=== PATIENT | male | born 1935 | race Caucasian/White ===

== ENCOUNTER 2017-06-24 07:18 | Inpatient (IN) | payer OTHER ==
[~2017-06-24] VITALS: Ht 170.2 cm; Wt 63.3 kg
[~2017-06-24 07:18] MED LIST: ADVIN25050; IBUP-103 PO
[2017-06-24] MEDS ORDERED: KETOROLAC TROMETHAMINE 30 MG/ML VIAL IV STA (07:37)
--- NOTE | 2017-06-24 07:45 | EMERGENCY ROOM VISIT NOTE ---
History Report prepared by Romeo: Rosamaria Arriaga Under the Supervision of: Dr. Benny Sinha M.D. First contact with patient: 07:33 Chief Complaint: KIDNEY STONE Stated Complaint: KIDNEY STONE History of Present Illness The patient is an 82 year old male who presents to the Emergency Room with complaints of persistent right flank pain that began last evening. He currently rates his discomfort as a 7/10 in severity. The patient states that he has a history of kidney stones. He states that since last evening he has experienced right flank pain that radiates into his right groin. The patient states that his last kidney stone was more than 10 years ago. He states that his pain today feels more intense than his previous kidney stones. The patient denies any pain with urination or lower extremity pain. Source of History: patient Onset: last evening Position: other (right flank) Symptom Intensity: 7/10 Timing: other (persistent) Associated Symptoms: No urinary symptoms Note: Associated Symptoms: right groin pain. Review of Systems All systems have been listed, reviewed, and are negative other than those previously mentioned. Please see Additional Medical History Sheet. Past Medical & Surgical Medical Problems: (1) Bronchitis (2) Kidney stones (3) Right ureteral calculus Family History Kidney disease Kidney stones Social History Smoking Status: Never Smoker Smokeless Tobacco Use: No Alcohol Use: none Marital Status: Housing Status: lives with significant other Occupation Status: retired Current/Historical Medications No Active Prescriptions or Reported Meds Allergies Coded Allergies: No Known Allergies (Verified , 01/15/13) Physical Exam Vital Signs Date Time Temp Pulse Resp B/P (MAP) Pulse Ox O2 Delivery O2 Flow Rate FiO2 06/24/17 10:52 67 16 132/63 95 Room Air 06/24/17 09:02 72 126/67 99 06/24/17 07:24 36.5 76 16 138/70 97 Physical Exam GENERAL: Patient awake, alert, oriented x 3. Patient follows commands. Patient does not appear toxic. Patient is adequately hydrated and well- nourished. SKIN: No erythema, pallor, cyanosis or rash HEENT: Normal head, pupils equal, reactive to light and accommodation. Neck: Without adenopathy, no neck vein distention. LUNGS: Clear to auscultation. No wheezes, no rales, no rhonchi. HEART: No murmurs. No gallops. No rubs ABDOMEN: No masses, no rebound, no hepatomegaly or splenomegaly. EXTREMITIES: No signs of trauma. No pedal or pretibial edema. No calf or thigh tenderness. NEUROLOGIC: Cranial nerves II-XII within normal limits. No gross motor sensory function deficits. Medical Decision & Procedures ER Provider Diagnostic Interpretation: CT results are interpretations by the radiologist and per my review. CT OF THE ABDOMEN AND PELVIS WITHOUT CONTRAST, STONE PROTOCOL CLINICAL HISTORY: Right flank pain. COMPARISON STUDY: CT of the abdomen and pelvis April 16, 2011. TECHNIQUE: Helical axial images of the abdomen and pelvis were obtained without IV or oral contrast according to renal stone protocol. A dose lowering technique was utilized adhering to the principles of ALARA. FINDINGS: Visualized portions of the lower lungs demonstrate a few left lower lobe pulmonary nodules which are unchanged since CT of April 16, 2011. These are benign given stability. There is mild bronchial wall thickening. Linear and groundglass opacities favor atelectasis. Trace pericardial effusion is present. Severe right hydroureteronephrosis is due to to a 1.1 x 0.7 cm right mid ureteral calculus located at the lower L5 level. No additional ureteral calculi are present. There are punctate bilateral renal calculi. There are left-sided parapelvic cysts. Evaluation the remainder of the abdomen and pelvis is suboptimal on this unenhanced exam. Unenhanced images of liver, spleen, adrenal glands and pancreas are unremarkable. There are calcified granulomas within the spleen. There are small gallstones within the gallbladder. There is no evidence for a bowel obstruction. No lymphadenopathy is present. A fat-containing right inguinal hernia is present. There are no suspicious osseous lesions. Mild dextroscoliosis of the lumbar spine is noted. IMPRESSION: 1. 1.1 x 0.7 cm mid right ureteral calculus that results in severe right hydroureteronephrosis. 2. Punctate bilateral renal calculi. 3. Cholelithiasis. Electronically signed by: Darien Nair M.D. 06/24/2017 8:08 AM Dictated Date/Time: 06/24/2017 7:57 AM Laboratory Results 06/24/17 07:43 06/24/17 07:43 Test 06/24/17 07:43 06/24/17 08:00 Red Blood Count 4.62 M/uL (4.7-6.1) Mean Corpuscular Volume 90.5 fL (80-100) Mean Corpuscular Hemoglobin 30.7 pg (25-34) Mean Corpuscular Hemoglobin Concent 34.0 g/dl (32-36) RDW Standard Deviation 46.3 fL (36.4-46.3) RDW Coefficient of Variation 14.0 % (11.5-14.5) Mean Platelet Volume 10.1 fL (7.4-10.4) Anion Gap 8.0 mmol/L (3-11) Est Creatinine Clear Calc Drug Dose 29.8 ml/min Estimated GFR () 42.3 Estimated GFR (Non- 36.5 BUN/Creatinine Ratio 14.8 (10-20) Calcium Level 9.2 mg/dl (8.5-10.1) Urine Color DK YELLOW Urine Appearance CLEAR (CLEAR) Urine pH 7.0 (4.5-7.5) Urine Specific [place] 1.024 (1.000-1.030) Urine Protein TRACE (NEG) Urine Glucose (UA) NEG (NEG) Urine Ketones 1+ (NEG) Urine Occult Blood NEG (NEG) Urine Nitrite NEG (NEG) Urine Bilirubin NEG (NEG) Urine Urobilinogen NEG (NEG) Urine Leukocyte Esterase SMALL (NEG) Urine WBC (Auto) 10-30 /hpf (0-5) Urine RBC (Auto) 5-10 /hpf (0-4) Urine Hyaline Casts (Auto) 1-5 /lpf (0-5) Urine Epithelial Cells (Auto) 20-30 /lpf (0-5) Urine Bacteria (Auto) NEG (NEG) Laboratory results as stated above per my review. Medications Administered Medications (Trade) Dose Ordered Sig/Mathieu Route Start Time Stop Time Status Last Admin Dose Admin Ketorolac Tromethamine (Toradol Inj) 30 mg NOW STAT IV 06/24/17 07:37 06/24/17 07:39 DC 06/24/17 07:47 30 MG Ciprofloxacin/ Dextrose (Cipro / D5W) 400 mg NOW STAT IV 06/24/17 10:09 06/24/17 10:11 DC 06/24/17 10:54 400 MG Sodium Chloride 1,000 ml @ 125 mls/hr Q8H IV 06/24/17 11:00 07/24/17 10:59 06/24/17 13:35 125 MLS/HR ED Course 0734: Past medical records reviewed. The patient was evaluated in room B9. A complete history and physical examination was performed. 0737: Ordered Toradol Inj 30 mg IV. 0948: I reevaluated the patient and he is feeling better, but although is still in some pain. He does not wish to have any further pain medications at this time. I discussed the exam findings with him and I discussed the treatment plan. Urology will be consulted. The patient is in agreement with the treatment plan for further evaluation. 1005: I discussed the patients case with MEDINA Johnson. She states that the patient should be placed on Cipro and have a urine culture ordered. She states that the patient should be evaluated in the hospital under medicine and they will consult. 1009: ordered Cipro/D5W 400 mg IV. 1032: I re-discussed the patients case with MEDINA Johnson. She states that the patient should actually be evaluated under [facility] Urology. 1034: I discussed the patients case with Dr. Day, [facility]. She states that the patient should be evaluated at by the hospitalist service and she will stent the patient later this afternoon. 1040: I discussed the patients case with MEDINA Dunn. He is going to evaluate the patient for further treatment. Medical Decision Nurses notes reviewed. Medical history sheet reviewed. Differential diagnosis includes but is not limited to: Kidney stone, urinary tract infection, pyelonephritis, musculoskeletal pain. Multiple labs and imaging were performed. Please see above. The patient is here with right flank pain and a very large stone. The patient has significant hydroureteronephrosis. White cells are noted in the urine but no bacteria. BUN /creatinine are both slightly elevated. The patient was given IV Cipro. He was given IV pain medication. I discussed care with Dr. Day over the phone. The patient will require further evaluation in the hospital. I also discussed care with the hospitalist. Medication Reconcilliation Current Medication List: was personally reviewed by me Blood Pressure Screening Patient's blood pressure: Normal blood pressure Blood pressure disposition: Did not require urgent referral Consults Time Called: 1003 Consulting Physician: MEDINA Johnson Returned Call: 1005 I discussed the patients case with MEDINA Johnson. She states that the patient should be placed on Cipro and have a urine culture ordered. She states that the patient should be evaluated in the hospital under medicine and they will consult. Additional Consults: Time Called: 1033 Consulted Physician: Nydia Gerardo Urologtae Returned Call: 1034 Additional Comments: I discussed the patients case with Nydia Gerardo Urologtae. She states that the patient should be evaluated at by the hospitalist service and she will stent the patient later this afternoon. Time Called: 1011 Consulted Physician: MEDINA Dunn Returned Call: 1040 Additional Comments: I discussed the patients case with MEDINA Dunn. He is going to evaluate the patient for further treatment. Impression Primary Impression: Kidney stone Additional Impression: Hydroureteronephrosis Scribe Attestation The scribe's documentation has been prepared under my direction and personally reviewed by me in its entirety. I confirm that the note above accurately reflects all work, treatment, procedures, and medical decision making performed by me. Departure Information Dispostion Being Evaluated By Hospitalist Prescriptions No Active Prescriptions or Reported Meds Referrals Librado Wood M.D. (PCP) Problem Qualifiers
[2017-06-24 08:03] LABS: HEMATOCRIT 41.8 % (42-52); MEAN CELL VOLUME 90.5 fL (80-100); MEAN CORPUSCULAR HEMOGLOBIN 30.7 pg (25-34); MEAN PLATELET VOLUME 10.1 fL (7.4-10.4); PLATELET COUNT 171 K/uL (130-400); RED BLOOD COUNT 4.62 M/uL (4.7-6.1); WHITE BLOOD COUNT 9.94 K/uL (4.8-10.8)
--- NOTE | 2017-06-24 08:09 | DIAGNOSTIC IMAGING REPORT ---
CT OF THE ABDOMEN AND PELVIS WITHOUT CONTRAST, STONE PROTOCOL CLINICAL HISTORY: Right flank pain. COMPARISON STUDY: CT of the abdomen and pelvis April 16, 2011. TECHNIQUE: Helical axial images of the abdomen and pelvis were obtained without IV or oral contrast according to renal stone protocol. A dose lowering technique was utilized adhering to the principles of ALARA. FINDINGS: Visualized portions of the lower lungs demonstrate a few left lower lobe pulmonary nodules which are unchanged since CT of April 16, 2011. These are benign given stability. There is mild bronchial wall thickening. Linear and groundglass opacities favor atelectasis. Trace pericardial effusion is present. Severe right hydroureteronephrosis is due to to a 1.1 x 0.7 cm right mid ureteral calculus located at the lower L5 level. No additional ureteral calculi are present. There are punctate bilateral renal calculi. There are left-sided parapelvic cysts. Evaluation the remainder of the abdomen and pelvis is suboptimal on this unenhanced exam. Unenhanced images of liver, spleen, adrenal glands and pancreas are unremarkable. There are calcified granulomas within the spleen. There are small gallstones within the gallbladder. There is no evidence for a bowel obstruction. No lymphadenopathy is present. A fat-containing right inguinal hernia is present. There are no suspicious osseous lesions. Mild dextroscoliosis of the lumbar spine is noted. IMPRESSION: 1. 1.1 x 0.7 cm mid right ureteral calculus that results in severe right hydroureteronephrosis. 2. Punctate bilateral renal calculi. 3. Cholelithiasis. Electronically signed by: Darien Nair M.D. 06/24/2017 8:08 AM Dictated Date/Time: 06/24/2017 7:57 AM
[2017-06-24 08:24] LABS: URINE APPEARANCE CLEAR (CLEAR); URINE BILIRUBIN NEG (NEG); URINE COLOR DK YELLOW; URINE EPITHELIAL CELL AUTO 20-30 /lpf (0-5); URINE NITRITE NEG (NEG); URINE SPECIFIC GRAVITY 1.024 (1.000-1.030); UROBILINOGEN NEG (NEG); ZZUR CULT IF INDIC CLEAN CATCH YES
[2017-06-24 08:28] LABS: BUN/CREATININE RATIO 14.8 (10-20); CALCIUM 9.2 mg/dl (8.5-10.1); CREATININE 1.7 mg/dl (0.60-1.40); POTASSIUM 4.4 mmol/L (3.5-5.1)
[2017-06-24 08:47] LABS: MANUAL MICROSCOPIC REQUIRED? NO; REVIEW REQ? NO
[2017-06-24] MEDS ORDERED: CIPROFLOXACIN 400MG / 200ML D5W IV STA (10:09)
[2017-06-24] MEDS ORDERED: ONDANSETRON INJ 2 MG/ML 2 ML VIAL IV PRN (11:00)
[2017-06-24] MEDS ORDERED: MoRPHine SULFATE 4 MG/ML 1 ML CARP\\VIAL IV PRN (11:00)
[2017-06-24] MEDS ORDERED: MoRPHine SULFATE 2 MG/ML CARP IV PRN (11:00)
[2017-06-24 11:06] VITALS: O2SAT 95; BMI 22.1
[2017-06-24] MEDS ORDERED: ALBUT/IPRATROP 3MG/0.5MG NEB 3 ML VIAL INH PRN (11:15)
--- NOTE | 2017-06-24 11:15 | Progress Note ---
Subjective Date of Service: Jun 24, 2017. Subjective will see pt this afternoon. plan to take to OR tonight for cysto right stent placement under iv sedation. plan stone surgery in next week or 2 as outpatient once creatinine has improved. Problem List Medical Problems: (1) Hydroureteronephrosis Status: Acute (2) Kidney stone Status: Acute Objective Vital Signs Date Time Temp Pulse Resp B/P (MAP) Pulse Ox O2 Delivery O2 Flow Rate FiO2 06/24/17 10:52 67 16 132/63 95 Room Air 06/24/17 09:02 72 126/67 99 06/24/17 07:24 36.5 76 16 138/70 97 Laboratory Results Last 24 Hours Test 06/24/17 07:43 06/24/17 08:00 White Blood Count 9.94 K/uL Red Blood Count 4.62 M/uL Hemoglobin 14.2 g/dL Hematocrit 41.8 % Mean Corpuscular Volume 90.5 fL Mean Corpuscular Hemoglobin 30.7 pg Mean Corpuscular Hemoglobin Concent 34.0 g/dl RDW Standard Deviation 46.3 fL RDW Coefficient of Variation 14.0 % Platelet Count 171 K/uL Mean Platelet Volume 10.1 fL Sodium Level 138 mmol/L Potassium Level 4.4 mmol/L Chloride Level 104 mmol/L Carbon Dioxide Level 26 mmol/L Anion Gap 8.0 mmol/L Blood Urea Nitrogen 25 mg/dl Creatinine 1.70 mg/dl Est Creatinine Clear Calc Drug Dose 29.8 ml/min Estimated GFR () 42.3 Estimated GFR (Non- 36.5 BUN/Creatinine Ratio 14.8 Random Glucose 113 mg/dl Calcium Level 9.2 mg/dl Urine Color DK YELLOW Urine Appearance CLEAR Urine pH 7.0 Urine Specific [place] 1.024 Urine Protein TRACE Urine Glucose (UA) NEG Urine Ketones 1+ Urine Occult Blood NEG Urine Nitrite NEG Urine Bilirubin NEG Urine Urobilinogen NEG Urine Leukocyte Esterase SMALL Urine WBC (Auto) 10-30 /hpf Urine RBC (Auto) 5-10 /hpf Urine Hyaline Casts (Auto) 1-5 /lpf Urine Epithelial Cells (Auto) 20-30 /lpf Urine Bacteria (Auto) NEG
--- NOTE | 2017-06-24 11:24 | History and Physical ---
History & Physical Date & Time of Service: Jun 24, 2017 at 11:11 Chief Complaint: Kidney Stone Primary Care Physician: Librado Wood M.D. History of Present Illness Source: patient, hospital records The patient is an 82-year-old male who presents to the emergency department with right flank pain that occurred briefly last week, and recurred 3 days ago, and intermittently since that time, until today returned in a more extreme level. He has a known history of kidney stones. He denies any blood in urine, urinary frequency, urinary urgency or nocturia. He denies fevers or chills or sweats. Past Medical/Surgical History Medical Problems: (1) Bronchitis Status: Resolved (2) Kidney stones Status: Resolved Family History Kidney disease Kidney stones Social History Smoking Status: Never Smoker Smokeless Tobacco Use: No Alcohol Use: none Drug Use: none Marital Status: Housing status: lives with family Occupational Status: retired Immunizations History of Influenza Vaccine: No History of Tetanus Vaccine?: Yes History of Pneumococcal: Yes History of Hepatitis B Vaccine: No Multi-Drug Resistant Organisms History of MDRO: No Allergies Coded Allergies: No Known Allergies (Verified , 01/15/13) Home Medications No Active Prescriptions or Reported Meds Review of Systems The patient denies chest pain, palpitations, shortness of breath, cough, lower extremity swelling, vision change, hearing change, sore throat, fevers, chills, sweats, weight change, fatigue, nausea, vomiting, diarrhea or constipation, blood in urine or stool, dysuria, urinary frequency or urgency, lightheadedness , dizziness, headache, memory loss, rash, abnormal bruising or bleeding, imbalance, focal or generalized weakness, numbness or tingling in arms or legs, generalized arthralgias or myalgias, back or neck pain, night sweats, or allergy symptoms. The review of systems is otherwise negative other than for that already noted above, and at least 10 systems have been reviewed. Physical Exam Vital Signs Date Time Temp Pulse Resp B/P (MAP) Pulse Ox O2 Delivery O2 Flow Rate FiO2 06/24/17 10:52 67 16 132/63 95 Room Air 06/24/17 09:02 72 126/67 99 06/24/17 07:24 36.5 76 16 138/70 97 The patient is awake, well-developed and adequately nourished, alert and oriented 3, normocephalic and atraumatic, lying in bed and in no acute distress. HEENT--PERRL, EOMI, mucous membranes and oropharynx normal. Neck--supple, no JVD or bruits, thyroid normal, trachea midline, no adenopathy. Heart--normal S1 and S2, no extra beats, no murmurs, rubs or gallops. Lungs--clear bilaterally with a few scattered light wheezes, no respiratory distress, no accessory muscle use. Abdomen--normal bowel sounds and soft, nontender and nondistended, no hernias or masses, no organomegaly. Extremities--no cyanosis, clubbing or edema. There are good distal pulses b/l. Dermatologic--normal skin turgor, normal color, warm and dry, no abnormal lymph nodes, no rash. Neurologic--cranial nerves II through XII grossly intact, motor and sensory examination normal. Rheumatologic--normal range of motion, nontender, muscles and joints. Psychiatric--normal affect. Diagnostics Laboratory Results Results Past 24 Hours Test 06/24/17 07:43 06/24/17 08:00 Range/Units White Blood Count 9.94 4.8-10.8 K/uL Red Blood Count 4.62 4.7-6.1 M/uL Hemoglobin 14.2 14.0-18.0 g/dL Hematocrit 41.8 42-52 % Mean Corpuscular Volume 90.5 80-100 fL Mean Corpuscular Hemoglobin 30.7 25-34 pg Mean Corpuscular Hemoglobin Concent 34.0 32-36 g/dl RDW Standard Deviation 46.3 36.4-46.3 fL RDW Coefficient of Variation 14.0 11.5-14.5 % Platelet Count 171 130-400 K/uL Mean Platelet Volume 10.1 7.4-10.4 fL Sodium Level 138 136-145 mmol/L Potassium Level 4.4 3.5-5.1 mmol/L Chloride Level 104 98-107 mmol/L Carbon Dioxide Level 26 21-32 mmol/L Anion Gap 8.0 3-11 mmol/L Blood Urea Nitrogen 25 7-18 mg/dl Creatinine 1.70 0.60-1.40 mg/dl Est Creatinine Clear Calc Drug Dose 29.8 ml/min Estimated GFR () 42.3 Estimated GFR (Non- 36.5 BUN/Creatinine Ratio 14.8 10-20 Random Glucose 113 70-99 mg/dl Calcium Level 9.2 8.5-10.1 mg/dl Urine Color DK YELLOW Urine Appearance CLEAR CLEAR Urine pH 7.0 4.5-7.5 Urine Specific [place] 1.024 1.000-1.030 Urine Protein TRACE NEG Urine Glucose (UA) NEG NEG Urine Ketones 1+ NEG Urine Occult Blood NEG NEG Urine Nitrite NEG NEG Urine Bilirubin NEG NEG Urine Urobilinogen NEG NEG Urine Leukocyte Esterase SMALL NEG Urine WBC (Auto) 10-30 0-5 /hpf Urine RBC (Auto) 5-10 0-4 /hpf Urine Hyaline Casts (Auto) 1-5 0-5 /lpf Urine Epithelial Cells (Auto) 20-30 0-5 /lpf Urine Bacteria (Auto) NEG NEG Microbiology Results 06/24/17 Urine Culture, Received Pending Diagnostic Radiology Patient Name: FIORDALIZA BARRERA Unit Number: [id number] Dictated: 06/24/17756 Transcribed: 06/24/17756 JESIKA Printed Date/Time: [~ rep prt dt]/[~ rep prt tm] [~ rep ct labl] - [~ rep ct ivnm] [facility] [place] [address] Dictated: 06/24/17756 Transcribed: 06/24/17756 Printed Date/Time: [~ rep prt dt]/[~ rep prt tm] [~ rep ct labl] - [~ rep ct ivnm] [~ rep ct add3]] CT OF THE ABDOMEN AND PELVIS WITHOUT CONTRAST, STONE PROTOCOL CLINICAL HISTORY: Right flank pain. COMPARISON STUDY: CT of the abdomen and pelvis April 16, 2011. TECHNIQUE: Helical axial images of the abdomen and pelvis were obtained without IV or oral contrast according to renal stone protocol. A dose lowering technique was utilized adhering to the principles of ALARA. FINDINGS: Visualized portions of the lower lungs demonstrate a few left lower lobe pulmonary nodules which are unchanged since CT of April 16, 2011. These are benign given stability. There is mild bronchial wall thickening. Linear and groundglass opacities favor atelectasis. Trace pericardial effusion is present. Severe right hydroureteronephrosis is due to to a 1.1 x 0.7 cm right mid ureteral calculus located at the lower L5 level. No additional ureteral calculi are present. There are punctate bilateral renal calculi. There are left-sided parapelvic cysts. Evaluation the remainder of the abdomen and pelvis is suboptimal on this unenhanced exam. Unenhanced images of liver, spleen, adrenal glands and pancreas are unremarkable. There are calcified granulomas within the spleen. There are small gallstones within the gallbladder. There is no evidence for a bowel obstruction. No lymphadenopathy is present. A fat-containing right inguinal hernia is present. There are no suspicious osseous lesions. Mild dextroscoliosis of the lumbar spine is noted. IMPRESSION: 1. 1.1 x 0.7 cm mid right ureteral calculus that results in severe right hydroureteronephrosis. 2. Punctate bilateral renal calculi. 3. Cholelithiasis. Electronically signed by: Darien Nair M.D. 06/24/2017 8:08 AM Dictated Date/Time: 06/24/2017 7:57 AM The status of this report is Signed. Draft = Not yet reviewed or approved by Radiologist. Signed = Reviewed and approved by Radiologist. <AttendingPhy></AttendingPhy> <FamilyPhy>Librado Wood M.D.</FamilyPhy > <PrimaryPhy>Librado Wood M.D.</PrimaryPhy> <UnitNumber>[id number]</ UnitNumber> <VisitNumber>[id number]</VisitNumber> <PatientName>FIORDALIZA BARRERA</PatientName> <DateOfBirth>1935</DateOfBirth> <Location>[facility]</ Location> <ServiceDate>06/24/17</ServiceDate> <MNE>ESINDI</MNE> <OrderingPhy> Benny Sinha M.D.</OrderingPhy> <OrderingPhyMNE>f rep ord dr howard</ OrderingPhyMNE> <DictatingPhyMNE>f rep dict dr howard</DictatingPhyMNE> <CCListMNE> f rep ct lee</CCListMNE> <AdmittingPhyMNE>f pt admit dr howard</AdmittingPhyMNE> < AttendingPhyMNE>f pt attend dr howard</AttendingPhyMNE> <ConsultingPhyMNE>f pt consult dr howard</ConsultingPhyMNE> <FamilyPhyMNE>f pt fam dr howard</FamilyPhyMNE> <OtherPhyMNE>f pt other dr howard</OtherPhyMNE> < PrimaryPhyMNE>f pt prim care dr howard</PrimaryPhyMNE> <ReferringPhyMNE>f pt referring dr howard</ReferringPhyMNE> Impression Assessment and Plan Right ureteral calculus/severe right hydroureteronephrosis/acute renal insufficiency--the patient will be admitted to the medical surgical floor. Nothing by mouth. Ceftriaxone 1 g IV daily. Normal saline at 125 ML's per hour. Serial BMP and magnesium levels. BPH with bladder outlet obstruction history--this was thought secondary to irritation from previous kidney stones. Patient underwent a cystolitholapaxy on 08/12/2006 with no residual recurrence. COPD/Pulmonary nodules--noted incidentally in lower half of the lungs as seen on CT of abdomen and pelvis. Noted to be unchanged since most recent CT of abdomen and pelvis in 2010. We will leave it to his outpatient physician to consider a full CT of the chest in the outpatient setting. Continue Advair discus 250/50 one inhalation every morning. Have available duonebs to use every 4 hours when necessary. 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 Trace pericardial effusion--noted on CT of abdomen and pelvis. Patient has an Excellent exercise capacity, having recently played in a game of softball with friends 3 days ago which actually prompted his kidney stone pain to recur. Will order an EKG and echocardiogram that can be followed up on in the outpatient setting. Level of Care Med/Surg Advanced Directives Existing Advance Directive: No Existing Living Will: No Existing Power of [employer] Software Engineer: No Resuscitation Status FULL RESUSCITATION VTE Prophylaxis VTE Risk Assessment Done? Y/N: Yes Risk Level: Low Given or contraindicated: SCD's Social Service Consult None Apply
[2017-06-24 12:14] VITALS: Ht 170.2 cm; Wt 63.3 kg
[2017-06-24 12:16] VITALS: BP 165/65; PULSE 74; TEMP 36.6; O2SAT 96
[2017-06-24 13:30] VITALS: O2SAT 96
[2017-06-24] MEDS: SODIUM CHLORIDE 0.9% 1000ML 1,000 ML IV SCH ×2 (13:35→21:29)
[2017-06-24] MEDS: CEFTRIAXONE SOD INJ 1 GM in DEXTROSE 5% ADD-VANTAGE 50ML 50 ML IV SCH (15:22)
[2017-06-24] MEDS ORDERED: PERFLUTREN LIPID MICROSPHERE (DEFINITY) IV ONE (15:38)
[2017-06-24 15:59] VITALS: BP 144/60; PULSE 70; TEMP 36.8; O2SAT 90
--- NOTE | 2017-06-24 16:21 | Urology Consultation ---
History General Date of Service: Jun 24, 2017. Chief Complaint: right ureteral stone Primary Care Physician: Librado Wood M.D. History of Present Illness I am asked by Dr Sinha and Dr Kamara to evaluate and treat patient for right ureteral stone. he has been working on it for a week. It is large over 10mm and obstructing at the iliac vessels mid ureter. His pain became severe this am. he has passed other stones. His pain is medium now. No fever + nausea. His creatinine is elevated. Imaging Imaging: CT Laboratory Results Past 24 Hours Test 06/24/17 07:43 06/24/17 08:00 Range/Units White Blood Count 9.94 4.8-10.8 K/uL Red Blood Count 4.62 4.7-6.1 M/uL Hemoglobin 14.2 14.0-18.0 g/dL Hematocrit 41.8 42-52 % Mean Corpuscular Volume 90.5 80-100 fL Mean Corpuscular Hemoglobin 30.7 25-34 pg Mean Corpuscular Hemoglobin Concent 34.0 32-36 g/dl RDW Standard Deviation 46.3 36.4-46.3 fL RDW Coefficient of Variation 14.0 11.5-14.5 % Platelet Count 171 130-400 K/uL Mean Platelet Volume 10.1 7.4-10.4 fL Sodium Level 138 136-145 mmol/L Potassium Level 4.4 3.5-5.1 mmol/L Chloride Level 104 98-107 mmol/L Carbon Dioxide Level 26 21-32 mmol/L Anion Gap 8.0 3-11 mmol/L Blood Urea Nitrogen 25 7-18 mg/dl Creatinine 1.70 0.60-1.40 mg/dl Est Creatinine Clear Calc Drug Dose 29.8 ml/min Estimated GFR () 42.3 Estimated GFR (Non- 36.5 BUN/Creatinine Ratio 14.8 10-20 Random Glucose 113 70-99 mg/dl Calcium Level 9.2 8.5-10.1 mg/dl Urine Color DK YELLOW Urine Appearance CLEAR CLEAR Urine pH 7.0 4.5-7.5 Urine Specific [place] 1.024 1.000-1.030 Urine Protein TRACE NEG Urine Glucose (UA) NEG NEG Urine Ketones 1+ NEG Urine Occult Blood NEG NEG Urine Nitrite NEG NEG Urine Bilirubin NEG NEG Urine Urobilinogen NEG NEG Urine Leukocyte Esterase SMALL NEG Urine WBC (Auto) 10-30 0-5 /hpf Urine RBC (Auto) 5-10 0-4 /hpf Urine Hyaline Casts (Auto) 1-5 0-5 /lpf Urine Epithelial Cells (Auto) 20-30 0-5 /lpf Urine Bacteria (Auto) NEG NEG Microbiology Results 06/24/17 Urine Culture, Received Pending Labs were reviewed and are within normal limits unless listed below. Labs are available in the chart and at [facility] Problem List Medical Problems: (1) Hydroureteronephrosis Status: Acute (2) Kidney stone Status: Acute Past History no pertinent history Family History Kidney disease Kidney stones Social History Hx Tobacco Use In Past Year?: No (quit PPD) Smoking: non-smoker Alcohol: never Drug use: none Marital status: Housing status: lives with family Occupation status: retired Immunizations History of Influenza Vaccine: No History of Tetanus Vaccine?: Yes History of Pneumococcal: Yes History of Hepatitis B Vaccine: No History of MDRO No Allergies Coded Allergies: No Known Allergies (Verified , 01/15/13) Medications Home Medications: Home Meds and Scripts Medications Dose Route/Sig Max Daily Dose Days Date Category No Active Prescriptions or Reported Medications Rx Inpatient Medications: Current Inpatient Medications Medications (Trade) Dose Ordered Sig/Mathieu Route Start Time Stop Time Status Last Admin Dose Admin Ondansetron HCl (Zofran Inj) 4 mg Q6H PRN IV 06/24/17 11:00 07/24/17 10:59 Acetaminophen 100 ml @ 400 mls/hr Q8H PRN IV 06/24/17 11:00 07/24/17 10:59 Famotidine 20 mg/ Dextrose 102 ml @ 200 mls/hr Q12 IV 06/24/17 21:00 07/24/17 20:59 Morphine Sulfate (MoRPHine SULFATE INJ) 2 mg Q2H PRN IV 06/24/17 11:00 07/08/17 10:59 Morphine Sulfate (MoRPHine SULFATE INJ) 4 mg Q2H PRN IV 06/24/17 11:00 07/08/17 10:59 Ceftriaxone Sodium 1 gm/ Dextrose 50 ml @ 100 mls/hr DAILY@1400 IV 06/24/17 14:00 07/04/17 13:59 06/24/17 15:22 100 MLS/HR Sodium Chloride 1,000 ml @ 125 mls/hr Q8H IV 06/24/17 11:00 07/24/17 10:59 06/24/17 13:35 125 MLS/HR Salmeterol Xinafoate/ Fluticasone (Advair Diskus 250/50 Inh) 1 puff QAM INH 06/25/17 09:00 07/25/17 08:59 Albuterol/ Ipratropium (Duoneb) 3 ml Q4R PRN INH 06/24/17 11:15 07/24/17 11:14 Review of Systems Review of Systems Constitutional: No fever, No chills Neurological: No dizzy, No seizures Gastrointestinal: + abdominal pain, + indigestion, + nausea, No vomiting, No constipation Cardiovascular: No chest pain, No swelling ankles/feet Respiratory: No shortness of breath, No chronic cough Male : + kidney stones, + nocturia more than once/night, No frequent urination, No painful urination Physical Exam Vital Signs: Vital Signs Past 12 Hours Date Time Temp Pulse Resp B/P (MAP) Pulse Ox O2 Delivery O2 Flow Rate FiO2 06/24/17 15:59 36.8 70 16 144/60 (88) 90 Room Air 06/24/17 13:30 96 Room Air 06/24/17 12:16 36.6 74 18 165/65 (98) 96 Room Air 06/24/17 11:44 67 16 132/63 95 06/24/17 11:06 95 Room Air 06/24/17 10:52 67 16 132/63 95 Room Air 06/24/17 09:02 72 126/67 99 06/24/17 07:24 36.5 76 16 138/70 97 Physical Exam: General Appearance: WD/WN, no apparent distress, + thin ENT: hearing grossly normal Neck: supple, no adenopathy, no JVD, trachea midline Respiratory/Chest: normal breath sounds, no respiratory distress, no accessory muscle use Cardiovascular: no edema Extremities: non-tender, no pedal edema, no calf tenderness, normal capillary refill Neurologic/Psychiatric: alert, normal mood/affect, oriented x 3 Skin: normal color, warm/dry, no rash Lymphatic: no adenopathy Assessment & Plan Assessment & Plan large obstructing right ureteral stone at the iliac vessel level. I suggest cysto right stent tonight then in staged fashion in next 1-2 weeks a right ureteroscopy once the ureter has dilated and his renal function has improved. I described procedure and he signed consent.
--- NOTE | 2017-06-24 17:46 | ECHOCARDIOGRAM REPORT ---
*NOTICE TO RECEIVING DEMOCRAT AGENCY This information is strictly Confidential and protected under [place] law. [place] law prohibits you from making any further disclosure of this information unless further disclosure is expressly permitted by the written consent of the person to whom it pertains or is authorized by law. A general authorization for the release of medical or other information is not sufficient for this purpose. Hospital accepts no responsibility if the information is made available to any other person, INCLUDING THE PATIENT. Interpretation Summary * Name: FIORDALIZA BARRERA Study Date: 06/24/2017 02:06 PM BP: 165/65 mmHg * Patient Location: C.MSN\S\N383\S\2 HR: 64 * : 1935 (M/d/yyyy) Gender: Male Height: 67 in * Age: 82 yrs Ethnicity: CA Weight: 140 lb * Ordering Physician: Pop Kamara * Performed By: Rhina Caraballo * * Reason For Study: PERICARDIAL DISEASE, PERICARDIAL EFFUSION NOTED ON CT * BSA: 1.7 m2 * -- Conclusions -- * Left ventricular systolic function is normal. * Grade I diastolic dysfunction, (abnormal relaxation pattern). * Moderate aortic regurgitation. * Right ventricular systolic pressure is normal. * There is no pericardial effusion. Procedure Details * A complete two-dimensional transthoracic echocardiogram was performed (2D, M-mode, Doppler and color flow Doppler). * A contrast injection of Definity was performed to improve assessment of LV function. * Contrast was injected into an intravenous site in the right arm. * One vial of Definity ultrasound contrast was diluted in normal saline to a total volume of 10 ml. A total of '3' ml of solution was administered during imaging. * Lot # [id number] of Definity utilized for procedure. * Expiration date 08/11. * The attending nurse who injected the contrast agent was SYED MORRISON RN. Left Ventricle * The left ventricle is normal in size. * There is normal left ventricular wall thickness. * Ejection Fraction = >70 %. * Left ventricular systolic function is normal. * Grade I diastolic dysfunction, (abnormal relaxation pattern). * The left ventricular wall motion is normal. Right Ventricle * The right ventricle is normal in size and function. * The right ventricular systolic function is normal as assessed by tricuspid annular plane systolic excursion (TAPSE) (normal >1.5 cm). Atria * The left atrial size is normal. * Right atrial size is normal. Mitral Valve * The mitral valve anatomy is normal. * Significant mitral regurgitation is absent. Tricuspid Valve * The tricuspid valve is not well visualized. * There is mild tricuspid regurgitation. * Right ventricular systolic pressure is normal. Aortic Valve * The aortic valve is trileaflet. * No hemodynamically significant valvular aortic stenosis. * Moderate aortic regurgitation. * There is an eccentric jet of aortic insufficiency directed against the anterior mitral leaflet. Great Vessels * Ascending aorta normal Pericardium/Pleural * There is no pericardial effusion. Great Vessels * Normal inferior vena cava diameter and respiratory variation suggests normal central venous pressure. MMode 2D Measurements and Calculations IVSd 1.1 cm IVSs 1.8 cm LVIDd 4.7 cm LVIDs 2.7 cm LVPWd 1.0 cm LVPWs 1.5 cm IVS/LVPW 1.0 FS 43.1 % EDV(Teich) 100.5 ml ESV(Teich) 25.9 ml EF(Teich) 74.3 % EDV(cubed) 101.4 ml ESV(cubed) 18.7 ml EF(cubed) 81.6 % % IVS thick 71.0 % % LVPW thick 43.3 % LV mass(C)d 175.8 grams LV mass(C)dI 101.2 grams/m\S\2 LV mass(C)s 163.6 grams LV mass(C)sI 94.1 grams/m\S\2 CO(Teich) 4.9 l/min CI(Teich) 2.8 l/min/m\S\2 SV(Teich) 74.6 ml SI(Teich) 43.0 ml/m\S\2 CO(cubed) 5.5 l/min CI(cubed) 3.1 l/min/m\S\2 SV(cubed) 82.7 ml SI(cubed) 47.6 ml/m\S\2 ACS 1.5 cm asc Aorta Diam 3.4 cm LVOT diam 2.2 cm LVOT area 4.0 cm\S\2 LVAd ap4 36.4 cm\S\2 LVLd ap4 8.7 cm EDV(MOD-sp4) 122.0 ml LVAs ap4 13.0 cm\S\2 LVLs ap4 6.0 cm ESV(MOD-sp4) 23.2 ml EF(MOD-sp4) 81.0 % LVAd ap2 38.7 cm\S\2 LVLd ap2 9.0 cm EDV(MOD-sp2) 136.0 ml LVAs ap2 17.9 cm\S\2 LVLs ap2 6.6 cm ESV(MOD-sp2) 40.3 ml EF(MOD-sp2) 70.4 % CO(MOD-sp4) 6.5 l/min CI(MOD-sp4) 3.8 l/min/m\S\2 SV(MOD-sp4) 98.8 ml SI(MOD-sp4) 56.9 ml/m\S\2 CO(MOD-sp2) 6.3 l/min CI(MOD-sp2) 3.6 l/min/m\S\2 SV(MOD-sp2) 95.7 ml SI(MOD-sp2) 55.1 ml/m\S\2 Doppler Measurements and Calculations MV E max myrna 43.2 cm/sec MV A max myrna 94.6 cm/sec MV E/A 0.46 MV dec time 0.26 sec Ao V2 max 110.8 cm/sec Ao max PG 4.9 mmHg Ao max PG (full) 2.0 mmHg TYRONE(V,A) 3.0 cm\S\2 TYRONE(V,D) 3.0 cm\S\2 AI max myrna 392.6 cm/sec AI max PG 61.6 mmHg AI dec slope 161.5 cm/sec\S\2 AI P1/2t 711.9 msec LV V1 max PG 2.9 mmHg LV V1 max 84.9 cm/sec PA V2 max 50.9 cm/sec PA max PG 1.0 mmHg TR max myrna 205.2 cm/sec
[2017-06-24] MEDS ORDERED: LIDOCAINE VISCOUS 2% 100ML ONE (19:11)
[2017-06-24] MEDS ORDERED: CONRAY 30% 150ML BOTTLE ONE (20:14)
[2017-06-24 20:30] VITALS: BP 145/56; PULSE 68; TEMP 36.8; O2SAT 95
--- NOTE | 2017-06-24 20:58 | DIAGNOSTIC IMAGING REPORT ---
KUB HISTORY: 82 years-old Male RIGHT STENT PLACEMENT COMPARISON: CT abdomen and pelvis of same day TECHNIQUE: 7 spot fluoroscopic images of the abdomen and pelvis were obtained utilizing 484.3 seconds of fluoroscopy time. FINDINGS: The first 2 images demonstrate a ureteroscope with guidewire. The third image demonstrates contrast opacification of a dilated distal right ureter. Focal filling defect of the distal right ureter correlating with previously described calculus is noted on images 3 and 4, however is not seen on the rest of the serial images, likely removed. IMPRESSION: Fluoroscopic assistance as above. Please see procedure report for further details. The above report was generated using voice recognition software. It may contain grammatical, syntax or spelling errors. Electronically signed by: Pedro Kelley M.D. 06/24/2017 8:56 PM Dictated Date/Time: 06/24/2017 8:52 PM
[2017-06-24] MEDS: FAMOTIDINE IV INJ 20 MG in DEXTROSE 5% 100ML 100 ML IV SCH (21:00)
--- NOTE | 2017-06-24 21:08 | [facility] Operative Report ---
Operative Report Operative Date Jun 24, 2017. Pre-Operative Diagnosis Right ureteral obstructing stone Post-Operative Diagnosis same, plus urethral stricture, and impacted stone Procedure(s) Performed Cystoscopy, Urethral dilation, placement of difficult sherman, right retrograde pyelogram Surgeon Dr. Day Entry Level Manufacturing Engineer Surgeon(s) none Estimated Blood Loss 1ml Findings dense 12 fr stricture at the proximal bulbar urethra and distal prostate. Trabeculated bladder, mild J hooking of distal ureter, impacted radio-lucent stone right ureter Fluids 200mL Specimens none Drains 16 fr little traverse tip sherman Anesthesia none Complication(s) None Disposition room 383-2 Indications large obstructing right mid ureteral stone. Has acute renal insufficiency and pain. Description of Procedure Patient was placed in lithotomy position. His genitals were prepped and draped in sterile fashion. Time out held with team. I placed a 18 fr flexible cystoscope to bulbar urethra. The patient has a dense stricture here. I cannot pass the scope. I passed wires to the bladder. I obtained patient's verbal permission to dilate the stricture. I dilated him from 14 f to 20 fr with sequential sounds under fluoro guidance over a wire. I then passed the cystoscope with firm pressure thru the dense stricture. The bladder is trabeculated. I identified the right UO and cannulated it with a road runner wire. Numerous attempts with straight and angled road runner wires cannot get passed his mid ureteral stone. I did a retrograde pyelogram and the stone appears radio-lucent. I can get some dye passed stone but no wires will pass. I ended my efforts and placed a 16 fr little traverse tip sherman over a stiff wire to the bladder. It is very tight at the stricture. I inflated balloon with 10mL of water. I connected him to gravity drainage bag. I left bladder empty and concluded case. He transferred to hospital room under my escort, in stable condition. Plan: for nephrostomy tube tomorrow at [facility] [place] [facility]. sherman for 5 days. will need to see me next week for void trial. oral pain meds as needed ASA 3 clean contaminated case 8 minutes 5 seconds seconds fluoro ancef antibiotic studio receptionist I attest to the content of the Intraoperative Record and any orders documented therein. Any exceptions are noted below.
[2017-06-24] MEDS ORDERED: FLUTICASONE/SALMETEROL 250/50 (ADVAIR) 14 PUFF/1 INHALER INH SCH (22:00)
[2017-06-24 22:55] VITALS: BP 151/61; PULSE 73; TEMP 37; O2SAT 96
[2017-06-24] MEDS: ACETAMINOPHEN IV 100 ML IV PRN (23:32)
[2017-06-25] MEDS: SODIUM CHLORIDE 0.9% 1000ML 1,000 ML IV SCH ×2 (02:36→11:30)
[2017-06-25 07:10] VITALS: BP 117/66; PULSE 61; TEMP 36.7; O2SAT 96
[2017-06-25 08:10] LABS: BASO % 0.3 %; BASO ABS # 0.02 K/uL (0-0.2); COMPLETE YES; EOS % 2.6 %; HEMATOCRIT 36.2 % (42-52); IG% 0.2 %; LYMPH % 22.4 %; LYMPH ABS # 1.29 K/uL (1.2-3.4); MEAN CELL VOLUME 91.2 fL (80-100); MEAN CORPUSCULAR HEMOGLOBIN 30.5 pg (25-34); MEAN CORPUSCULAR HGB CONC 33.4 g/dl (32-36); MEAN PLATELET VOLUME 10.4 fL (7.4-10.4); MONO % 14.3 %; NEUT % 60.2 %; PLATELET COUNT 133 K/uL (130-400); RED BLOOD COUNT 3.97 M/uL (4.7-6.1); WHITE BLOOD COUNT 5.75 K/uL (4.8-10.8)
[2017-06-25] MEDS: FAMOTIDINE IV INJ 20 MG in DEXTROSE 5% 100ML 100 ML IV SCH (08:14)
[2017-06-25 08:42] LABS: BUN/CREATININE RATIO 15.5 (10-20); CALCIUM 8.1 mg/dl (8.5-10.1); CREATININE 1.5 mg/dl (0.60-1.40); POTASSIUM 3.9 mmol/L (3.5-5.1)
[2017-06-25] MEDS ORDERED: FLUTICASONE/SALMETEROL 250/50 (ADVAIR) 14 PUFF/1 INHALER INH SCH (09:00)
--- NOTE | 2017-06-25 09:11 | Discharge Instructions ---
Discharge Instructions Date of Service Jun 25, 2017. Admission Reason for Admission: Hydroureteronephrosis, R Ureteral Calculus Discharge Discharge Diagnosis / Problem: obstructive uropathy Discharge Goals Goal(s): Diagnostic testing, Therapeutic intervention Activity Recommendations Activity Limitations: resume your previous activity . Current Hospital Diet Patient's current hospital diet: Renal Diet Discharge Diet Recommended Diet: Regular Diet Procedures Procedures Performed: Cystoscopy, Urethral dilation, placement of difficult sherman, right retrograde pyelogram Pending Studies Studies pending at discharge: no Medical Emergencies . Who to Call and When: Medical Emergencies: If at any time you feel your situation is an emergency, please call 911 immediately. . Non-Emergent Contact Non-Emergency issues call your: Primary Care Provider Call Non-Emergent contact if: temperature is above 101, your pain is unusual for you . . "Provider Documentation" section prepared by Vazquez Freedman. . VTE Core Measure Inpt VTE Proph given/why not?: SCD's
--- NOTE | 2017-06-25 09:20 | Progress Note ---
Subjective Date of Service: Jun 25, 2017. Subjective Pt evaluation today including: conversation w/ patient, physical exam, lab review, conversation w/ advertising sales consultant Voiding: sherman catheter in place Patient having mild to moderate right flank pain. Needed narcotic once overnight. Tolerated diet last night. Sherman not giving him problems. Urine less bloody today. Labs show some hemodilution in HCT and his creatinine improved slightly with hydration. Problem List Medical Problems: (1) Hydroureteronephrosis Status: Acute (2) Kidney stone Status: Acute Review of Systems Constitutional: No fever, No chills, No sweats Respiratory: No cough Cardiac: No chest pain, No palpitations Male : + hematuria Neurologic: No weakness Endo: + fatigue Objective Vital Signs Date Time Temp Pulse Resp B/P (MAP) Pulse Ox O2 Delivery O2 Flow Rate FiO2 06/25/17 07:10 36.7 61 17 117/66 (83) 96 Room Air 06/24/17 23:19 Room Air 06/24/17 22:55 37.0 73 16 151/61 (91) 96 Room Air 06/24/17 20:30 Room Air 95.0 06/24/17 20:30 36.8 68 18 145/56 (85) 95 Room Air 06/24/17 15:59 36.8 70 16 144/60 (88) 90 Room Air 06/24/17 15:30 Room Air 06/24/17 13:30 96 Room Air 06/24/17 12:16 36.6 74 18 165/65 (98) 96 Room Air 06/24/17 11:44 67 16 132/63 95 06/24/17 11:06 95 Room Air 06/24/17 10:52 67 16 132/63 95 Room Air Physical Exam General Appearance: WD/WN, no apparent distress, + thin Eyes: normal inspection, sclerae normal Neck: no adenopathy, no carotid bruits, trachea midline Respiratory/Chest: normal breath sounds, no respiratory distress Extremities: non-tender, normal inspection, no pedal edema, no calf tenderness Neurologic/Psychiatric: alert, normal mood/affect, oriented x 3 Skin: normal color, warm/dry, no rash Lymphatic: no adenopathy Laboratory Results Last 24 Hours Test 06/25/17 07:51 White Blood Count 5.75 K/uL Red Blood Count 3.97 M/uL Hemoglobin 12.1 g/dL Hematocrit 36.2 % Mean Corpuscular Volume 91.2 fL Mean Corpuscular Hemoglobin 30.5 pg Mean Corpuscular Hemoglobin Concent 33.4 g/dl Platelet Count 133 K/uL Mean Platelet Volume 10.4 fL Neutrophils (%) (Auto) 60.2 % Lymphocytes (%) (Auto) 22.4 % Monocytes (%) (Auto) 14.3 % Eosinophils (%) (Auto) 2.6 % Basophils (%) (Auto) 0.3 % Neutrophils # (Auto) 3.46 K/uL Lymphocytes # (Auto) 1.29 K/uL Monocytes # (Auto) 0.82 K/uL Eosinophils # (Auto) 0.15 K/uL Basophils # (Auto) 0.02 K/uL RDW Standard Deviation 47.5 fL RDW Coefficient of Variation 14.1 % Immature Granulocyte % (Auto) 0.2 % Immature Granulocyte # (Auto) 0.01 K/uL Sodium Level 140 mmol/L Potassium Level 3.9 mmol/L Chloride Level 107 mmol/L Carbon Dioxide Level 25 mmol/L Anion Gap 8.0 mmol/L Blood Urea Nitrogen 23 mg/dl Creatinine 1.50 mg/dl Est Creatinine Clear Calc Drug Dose 33.4 ml/min Estimated GFR () 49.2 Estimated GFR (Non- 42.4 BUN/Creatinine Ratio 15.5 Random Glucose 82 mg/dl Calcium Level 8.1 mg/dl Magnesium Level 2.0 mg/dl Assessment and Plan Obstructing impacted large right mid ureteral stone failed retrograde stent attempt last night. Plan transfer to [facility] [place] for right nephrostomy tube. Will treat stone in 2-3 weeks via antegrade approach, ureteroscopy laser litho basket stone extraction. Bulbar Urethral stricture - sequentially dilated to 20 fr yesterday, needs his 16 fr barrow tip Sherman for 5 days. Plan Void trial in [facility].
[2017-06-25 10:17] LABS: PARTIAL THROMBOPLASTIN RATIO 1.1; PROTHROMBIN TIME (PATIENT) 10.9 SECONDS (9.0-12.0)
[2017-06-25] MEDS: ACETAMINOPHEN IV 100 ML IV PRN (14:11)
[2017-06-25] MEDS: CEFTRIAXONE SOD INJ 1 GM in DEXTROSE 5% ADD-VANTAGE 50ML 50 ML IV SCH (14:38)
[2017-06-25 15:03] VITALS: BP 134/56; PULSE 70; TEMP 36.8; O2SAT 96
--- NOTE | 2017-06-25 15:12 | Discharge Summary ---
Discharge Summary Date of Service Jun 25, 2017. Discharge Summary Admission Date: Jun 24, 2017 at 11:04 Discharge Date: Jun 25, 2017 Discharge Disposition: Acute care facility Principal Diagnosis: right ureteral calculus with hydronephrosis and obstructive uropathy Immunizations: Have You Had Influenza Vaccine: No History of Tetanus Vaccine?: Yes History of Pneumococcal: Yes History of Hepatitis B Vaccine: No Consultations: Dr. Mell Day with failed attempts at stenting or passing a wire past calculus Discussed with Dr. Nelson at [facility] will accept in transfer for possible percutaneous nephrostomy tubes Medication Reconciliation Medication Profile: No Active Prescriptions or Reported Meds Discharge Exam Review of Systems: Constitutional: No fever, No chills Respiratory: No cough, No shortness of breath, No dyspnea on exertion Physical Exam: General Appearance: WD/WN, + mild distress Eyes: PERRL, EOMI Neck: supple, no JVD Abdomen / GI: normal bowel sounds, soft, + tenderness Hospital Course 82-year-old male with obstructive uropathy from a 1.170 right ureteral calculus with hydronephrosis patient was taken to the operating room and had to have his prosthetic stricture dilated attempts to place a wire passed the calculus were unsuccessful multiple times Dr. Mell Day recommends transfer to tertiary care center for interventional radiology for continued nephrostomy tubes neurological treatment of this obstructed stone The patient chose to go to [facility], the call center was contacted I spoke first the hospitalist and second to Dr. Nelson in urology. Dr. Nelson accepted in transfer I prepared paperwork spoke to Dr. Day spoke to the patient. The patient be sent via BLS Total Time Spent: Greater than 30 minutes This includes examination of the patient, discharge planning, medication reconciliation, and communication with other providers. Discharge Instructions Please refer to the electronic Patient Visit Report (Discharge Instructions) for additional information.
[2017-06-25 17:12] VITALS: BP 134/56; PULSE 70; TEMP 36.8; O2SAT 96
[2017-07-06] MEDS ORDERED: ADVIN25/60 INH (08:00)
[2017-07-14] MEDS ORDERED: SULF800T23 PO (10:10)
[2017-07-14] MEDS ORDERED: PHEN-775 PO (10:10)
[2017-07-14] MEDS ORDERED: TAMS0.4C38 PO (10:10)
[2017-07-14] MEDS ORDERED: OXYC-57 PO (10:10)
== END 2017-06-25 18:10 | disposition short-term general hospital (02) | DRG 694 ==
LOC: C.EDB 07:19 → C.MSN 11:04 → ENRESERV 11:29
PROVIDERS: ADMIT Hospitalist; ATTEND Hospitalist
PROC: 0T7D8ZZ Dilation of Urethra, Via Natural or Artificial Opening Endoscopic (ICD-10-PCS; principal; 2017-06-24 18:00)
PROC: 0TJB8ZZ Inspection of Bladder, Via Natural or Artificial Opening Endoscopic (ICD-10-PCS; principal; 2017-06-24 18:00)
DX: N13.2 Hydronephrosis with renal and ureteral calculous obstruction (principal); J44.9 Chronic obstructive pulmonary disease, unspecified

== ENCOUNTER 2017-07-14 05:12 | Day surgery (SDC) | payer OTHER ==
[2017-07-06 08:01] VITALS: BMI 22.0
[~2017-07-14] VITALS: Ht 170.2 cm; Wt 65.0 kg
[~2017-07-14 05:12] MED LIST changes: +ADVIN25/60 INH; -ADVIN25050; -IBUP-103 PO
[2017-07-14 05:55] VITALS: BP 162/96; PULSE 69; TEMP 36.7; O2SAT 98; Ht 170.2 cm; Wt 65.0 kg
[2017-07-14] MEDS ORDERED: VANCOMYCIN 1GM/270ML NSS IV SCH (06:00)
[2017-07-14] MEDS ORDERED: GENTAMICIN INJ 240 MG in DEXTROSE 5% 100ML 100 ML IV SCH (06:00)
[2017-07-14] MEDS ORDERED: LACTATED RINGER'S 1000ML 1,000 ML IV SCH (06:00)
[2017-07-14] MEDS ORDERED: NAPR1TAB9 PO (06:11)
[2017-07-14] MEDS ORDERED: PROPOFOL IV EMULSION 10 MG/ML 20 ML VIAL IV ONE (06:29)
[2017-07-14] MEDS ORDERED: FENTANYL CITRATE INJ 50 MCG/1 ML 2 ML VIAL ONE (06:29)
[2017-07-14] MEDS ORDERED: LIDOCAINE HCL 2% 2 ML VIAL (20MG/ML) ONE (06:29)
[2017-07-14] MEDS ORDERED: ONDANSETRON INJ 2 MG/ML 2 ML VIAL ONE (06:29)
--- NOTE | 2017-07-14 07:06 | History & Physical Bridge Note ---
H&P Re-Evaluation Bridge Note: I have examined the patient, reviewed the History & Physical and in the interval since the performance of the History & Physical I have noted the following changes of clinical significance: No changes noted
[2017-07-14] MEDS ORDERED: CONRAY 30% 150ML BOTTLE ONE (07:12)
[2017-07-14] MEDS ORDERED: NEOSTIGMINE METHYLSULFATE 5 MG/5 ML SYR ONE (07:57)
[2017-07-14] MEDS ORDERED: GLYCOPYRROLATE INJ 0.2 MG/ML VIAL ONE (07:57)
[2017-07-14] MEDS ORDERED: ROCURONIUM BROMIDE 10 MG/ML 5 ML VIAL IV ONE (07:57)
[2017-07-14] MEDS ORDERED: FENTANYL CITRATE INJ 50 MCG/1 ML 2 ML VIAL IV PRN (08:30)
[2017-07-14] MEDS ORDERED: ONDANSETRON INJ 2 MG/ML 2 ML VIAL IV PRN (08:30)
[2017-07-14] MEDS ORDERED: ATROPINE SULFATE 0.1 MG/ML 5ML SYR IV PRN (08:30)
[2017-07-14] MEDS ORDERED: EpHEDrine SULFATE INJ 50 MG/ML AMP IV PRN (08:30)
--- NOTE | 2017-07-14 09:44 | DIAGNOSTIC IMAGING REPORT ---
RETROGRADE INCLUDES KUB CLINICAL HISTORY: RT ANTEGRADE/LASER/STENT/P OSS TUBE CHANGE nephrostomy TECHNIQUE: Image intensifier COMPARISON STUDY: None FINDINGS: Image intensifier was utilized for evaluation of the patient's right across renal and right ureteral stent. A potential tube exchange was performed IMPRESSION: Intraoperative image intensifier usage for a right ureteral stent evaluation/exchanges. The above report was generated using voice recognition software. It may contain grammatical, syntax or spelling errors. Electronically signed by: Len Blake M.D. 07/14/2017 9:42 AM Dictated Date/Time: 07/14/2017 9:41 AM
--- NOTE | 2017-07-14 10:08 | [facility] Operative Report ---
Operative Report Operative Date Jul 14, 2017. Pre-Operative Diagnosis Impacted right ureteral stone; post traumatic bulbar urethral stricture Post-Operative Diagnosis Impacted right ureteral stone; post traumatic bulbar urethral stricture Procedure(s) Performed Cystoscopy; Right Ureteroscopy, Laser Lithotripsy, Basket Stone Extraction; Stent Placement; removal of right nephrostomy tube & nephrostogram; cold knife incision of uretheral stricture Surgeon Dr. Kiara Day Mattress Inspector Surgeon(s) none Estimated Blood Loss 3mL Findings dense pale 14 fr bulbar urethral stricture, trabeculated bladder , impacted right mid ureteral stone radio-lucent. Fluids 1800mL Specimens A: Right Ureteral Stone fragments Drains 6 fr 26 centimeter double J stent on a string, 16 fr [place] sherman Anesthesia GET Complication(s) None Disposition Recovery Room / PACU Indications impacted right mid ureteral stone and bulbar urethral stricture. attempts at retrograde stent placement a few weeks ago were unsuccessful. He had a nephrostomy tube placed at [facility] and now we plan to remove stone. Description of Procedure Patient was given GET anesthesia and placed in lithotomy position. His genitals were prepped and draped in sterile fashion. Time out held with team. I placed a 17 fr rigid cystoscope and encountered a 12-14 fr pale dense bulbar stricture. I passed a stiff wire to the bladder. I next placed a 20 fr scope and used a round blade to cold incise his stricture at the 8 oclock location where the scar was more flimsy which opened up the scar enough to pass the scope into the bladder. I then switched back to a 21 fr rigid cystoscope which was able to pass the incised scar now. The incised scar is bleeding little. The prostatic fossa is open. The UOs are close to bladder neck. The bladder is trabeculated. I placed a road runner wire up right ureter and once again cannot get past the obstructing radio-lucent mid ureteral stone. I had an administrative library assistant inject dye antegrade thru the nephrostomy tube to delineate the upper ureter above the stone. I also injected some dye from a 5 fr catheter below the stone to encourage the stone to move a bit. After this I was able to pass a road runner wire up the right ureter to the kidney. I passed a [address] runner and exchanged for a stiff wire. Thus with thru and thru access I feel a retrograde approach is feasible. I placed a dual lumen catheter and placed a second wire. I placed the flexible ureteroscope over the wire to just below the stone. I used a 200 micron holmium laser on low settings to carefully fragment the stone into very small pieces. Some pieces moved proximally. I was very careful to avoid lasering the ureteral wall and the stone mobilized and fragmented nicely. I do not see any stone pieces remaining in the ureteral wall. The ureter is narrow here at the iliac vessels so I think the obstruction was more from angulation of ureter just below the stone rather than a deeply impacted stone. The ureteral mucosa looks quite healthy. I then basketed dozens of stone fragments with a 2.4 fr zero tip basket, ultimately placing a 12 fr 28 centimeter ureteral access sheath below the stone site to aid scope insertion. Once nealry all fragments were removed I placed a 26 centimeter 6 Fr double J stent with string easily. I placed a 16 fr [place] sherman over a stiff wire and secured sherman with 10mL of water in balloon. I taped the stent string to the sherman. I then moved up to right flank and unlocked the nephrostomy coil. I removed the nephrostomy tube under fluoro guidance observing a uncurling of the loop and making sure the double J ureteral stent was undisturbed. I left bladder empty and concluded case. He transferred to recovery under my escort, in stable condition. Plan: Home today Pyridium for dysuria x 3 days flomax daily oral pain meds as needed bactrim x 10 days sherman x 1 week, remove stent and sherman in office next week. ASA 3 dirty case 2 minutes 10 seconds seconds fluoro vanco and gentamycin antibiotic conche operator I attest to the content of the Intraoperative Record and any orders documented therein. Any exceptions are noted below.
[2017-07-14] MEDS ORDERED: OXYC-57 PO (10:10)
[2017-07-14] MEDS ORDERED: PHEN-775 PO (10:10)
[2017-07-14] MEDS ORDERED: SULF800T23 PO (10:10)
[2017-07-14] MEDS ORDERED: TAMS0.4C38 PO (10:10)
[2017-07-14 10:20] VITALS: BP 165/72; PULSE 62; TEMP 36.4; O2SAT 95
--- NOTE | 2017-07-14 10:23 | Anesthesiology Progress Note ---
Anesthesia Post Op Note Date & Time Jul 14, 2017 at 10:23 Vital Signs Pain Intensity: 1 Vital Signs Past 12 Hours Date Time Temp Pulse Resp B/P (MAP) Pulse Ox O2 Delivery O2 Flow Rate FiO2 07/14/17 10:17 36.2 07/14/17 10:05 63 20 124/59 97 Room Air 07/14/17 09:55 65 20 141/60 100 Oxymask 10 07/14/17 09:45 80 20 137/84 100 Oxymask 10 07/14/17 09:37 36 62 20 136/63 100 Oxymask 10 07/14/17 05:55 36.7 69 20 162/96 (118) 98 Room Air Notes Mental Status: alert / awake / arousable, participated in evaluation Pt Amnestic to Procedure: Yes Nausea / Vomiting: adequately controlled Pain: adequately controlled Airway Patency, RR, SpO2: stable & adequate BP & HR: stable & adequate Hydration State: stable & adequate Anesthetic Complications: no major complications apparent
[2017-07-14 10:50] VITALS: BP 148/64; PULSE 62; O2SAT 97
[2017-07-14 11:20] VITALS: BP 148/64; PULSE 68; TEMP 36.4; O2SAT 95
== END 2017-07-14 11:50 | disposition home or self-care (01) ==
LOC: C.ACU 05:12
PROVIDERS: ATTEND Urology
DX: N20.1 Calculus of ureter (principal); N35.011 Post-traumatic bulbous urethral stricture; N32.89 Other specified disorders of bladder

== ENCOUNTER 2017-09-14 23:12 | Emergency (ER) | payer OTHER ==
[~2017-09-14] VITALS: Ht 170.2 cm; Wt 64.8 kg
[~2017-09-14 23:12] MED LIST changes: +NAPR1TAB9 PO; +OXYC-57 PO; +SULF800T23 PO
[2017-09-14 23:15] VITALS: TEMP 36.6; Ht 170.2 cm; Wt 64.8 kg
[2017-09-14] MEDS ORDERED: SODIUM CHLORIDE 0.9% 1000ML 1,000 ML IV STA (23:26)
--- NOTE | 2017-09-14 23:30 | EMERGENCY ROOM VISIT NOTE ---
History Report prepared by Romeo: Kenyon Falcon Under the Supervision of: Dr. Parisa Cevallos M.D. First contact with patient: 23:20 Chief Complaint: FLANK PAIN Stated Complaint: LOW BACK PAIN History of Present Illness The patient is an 82 year old male who presents to the Emergency Room with complaints of worsening right-sided flank pain that started 2 days ago. He says that he had an operation where the pain is currently located at [facility] a month ago for kidney stones. The patient states that he called Dr. Day of urology 2 days ago when the pain started. He notes that the right- sided flank pain worsened today, and he started having a fever today as well. The patient says that it does not hurt much to take a deep breath. He states that he had his nephrostomy tube removed a couple weeks ago. He denies any vomiting or eye problems. Source of History: patient Onset: 2 days ago Position: other (right-sided flank) Quality: other (pain) Timing: worsening Associated Symptoms: + fevers (today), No vomiting Note: Associated symptoms: Denies eye problems. Review of Systems See HPI for pertinent positives & negatives. A total of 10 systems reviewed and were otherwise negative. Past Medical & Surgical Medical Problems: (1) Bronchitis (2) Kidney stones (3) Right ureteral calculus Family History Kidney disease Kidney stones Social History Smoking Status: Former Smoker Alcohol Use: none Drug Use: none Marital Status: Housing Status: lives with significant other Occupation Status: retired Current/Historical Medications Scheduled Fluticasone Prop/Salmeterol (Advair Diskus 250/50 60 Dose), 1 PUFF INH QPM Allergies Coded Allergies: No Known Allergies (Verified , 09/15/17) Physical Exam Vital Signs Date Time Temp Pulse Resp B/P (MAP) Pulse Ox O2 Delivery O2 Flow Rate FiO2 09/15/17 02:40 78 16 147/81 96 09/15/17 01:58 78 18 142/83 95 Room Air 09/15/17 00:03 77 09/14/17 23:59 74 18 149/67 98 Room Air 09/14/17 23:15 36.6 73 20 167/71 94 Room Air Physical Exam Vital signs reviewed. General: Well-appearing 82 year old male, in no significant distress. HEENT: No scleral icterus, PERRLA, neck supple. Atraumatic. Cardiovascular: Regular rate and rhythm, no extra sounds. Pulmonary: Clear to auscultation bilaterally, normal work of breathing. Abdomen: Soft, nontender, nondistended, positive bowel sounds. Musculoskeletal: Right flank tenderness. Tenderness to palpation of lumbar paraspinous muscles. No CVA tenderness. Atraumatic, no peripheral edema. Neurologic: Patient awake alert and oriented x 3 Skin: Warm, dry, no rash Medical Decision & Procedures ER Provider Diagnostic Interpretation: CT results as stated below per my review and radiologist interpretation: CT ABDOMEN & PELVIS Without Contrast: Comparison: CT abdomen and pelvis 06/24/17 Evaluation slightly limited by motion artifact. Interval resolution of right ureteral stone and hydroureteronephrosis. No evidence of renal stone or hydroureteronephrosis. Appendix not identified, but no pericecal inflammatory changes to suggest acute appendicitis. No free air or free fluid. No bowel obstruction. Mild scoliosis and degenerative change of spine changes. Left lower lobe nodules and bibasilar scarring/atelectasis, similar to prior. Splenic calcifications, compatible with calcified granulomas. Unopacified solid organs otherwise unremarkable. Small sliding hiatal hernia. Atherosclerotic calcifications. Radiologist: Jayant Curtis MD Laboratory Results 09/14/17 23:40 Red Blood Count 4.36, Mean Corpuscular Volume 92.7, Mean Corpuscular Hemoglobin 31.9, Mean Corpuscular Hemoglobin Concent 34.4, Mean Platelet Volume 10.5, Neutrophils (%) (Auto) 50.0, Lymphocytes (%) (Auto) 33.6, Monocytes (%) (Auto) 11.8, Eosinophils (%) (Auto) 3.5, Basophils (%) (Auto) 0.8, Neutrophils # (Auto ) 3.18, Lymphocytes # (Auto) 2.14, Monocytes # (Auto) 0.75, Eosinophils # (Auto ) 0.22, Basophils # (Auto) 0.05 09/14/17 23:40 Test 09/14/17 01:00 09/14/17 23:40 Urine Color YELLOW Urine Appearance CLEAR (CLEAR) Urine pH 6.5 (4.5-7.5) Urine Specific Malone 1.021 (1.000-1.030) Urine Protein NEG (NEG) Urine Glucose (UA) NEG (NEG) Urine Ketones NEG (NEG) Urine Occult Blood NEG (NEG) Urine Nitrite NEG (NEG) Urine Bilirubin NEG (NEG) Urine Urobilinogen NEG (NEG) Urine Leukocyte Esterase TRACE (NEG) Urine WBC (Auto) 1-5 /hpf (0-5) Urine RBC (Auto) 0-4 /hpf (0-4) Urine Hyaline Casts (Auto) 1-5 /lpf (0-5) Urine Epithelial Cells (Auto) 10-20 /lpf (0-5) Urine Bacteria (Auto) NEG (NEG) White Blood Count 6.36 K/uL (4.8-10.8) Red Blood Count 4.36 M/uL (4.7-6.1) Hemoglobin 13.9 g/dL (14.0-18.0) Hematocrit 40.4 % (42-52) Mean Corpuscular Volume 92.7 fL (80-100) Mean Corpuscular Hemoglobin 31.9 pg (25-34) Mean Corpuscular Hemoglobin Concent 34.4 g/dl (32-36) Platelet Count 177 K/uL (130-400) Mean Platelet Volume 10.5 fL (7.4-10.4) Neutrophils (%) (Auto) 50.0 % Lymphocytes (%) (Auto) 33.6 % Monocytes (%) (Auto) 11.8 % Eosinophils (%) (Auto) 3.5 % Basophils (%) (Auto) 0.8 % Neutrophils # (Auto) 3.18 K/uL (1.4-6.5) Lymphocytes # (Auto) 2.14 K/uL (1.2-3.4) Monocytes # (Auto) 0.75 K/uL (0.11-0.59) Eosinophils # (Auto) 0.22 K/uL (0-0.5) Basophils # (Auto) 0.05 K/uL (0-0.2) RDW Standard Deviation 49.6 fL (36.4-46.3) RDW Coefficient of Variation 14.5 % (11.5-14.5) Immature Granulocyte % (Auto) 0.3 % Immature Granulocyte # (Auto) 0.02 K/uL (0.00-0.02) Anion Gap 8.0 mmol/L (3-11) Est Creatinine Clear Calc Drug Dose 42.8 ml/min Estimated GFR () 64.4 Estimated GFR (Non- 55.6 BUN/Creatinine Ratio 19.1 (10-20) Calcium Level 8.9 mg/dl (8.5-10.1) Total Bilirubin 0.5 mg/dl (0.2-1) Direct Bilirubin 0.1 mg/dl (0-0.2) Aspartate Amino Transf (AST/SGOT) 22 U/L (15-37) Alanine Aminotransferase (ALT/SGPT) 27 U/L (12-78) Alkaline Phosphatase 93 U/L (45-117) Total Protein 7.2 gm/dl (6.4-8.2) Albumin 3.3 gm/dl (3.4-5.0) Laboratory results per my review. Medications Administered Medications (Trade) Dose Ordered Sig/Mathieu Route Start Time Stop Time Status Last Admin Dose Admin Sodium Chloride 1,000 ml @ 125 mls/hr Q8H STAT IV 09/14/17 23:26 09/15/17 03:02 DC 09/14/17 23:26 125 MLS/HR ED Course 2324: Past medical records reviewed. The patient was evaluated in room B10. A complete history and physical examination was performed. 2326: Ordered NSS 1000 ml @ 125 mls/hr IV. 0150: I reevaluated and updated the patient. 0234: Upon reevaluation, the patient appeared to be resting comfortably. I discussed findings with him. He verbalized agreement of the treatment plan. He was discharged home. Medical Decision Differential diagnosis: Etiologies such as renal colic, appendicitis, diverticulitis, mesenteric ischemia, aortic pathology, infections, inflammatory bowel disease, PUD, biliary pathology, UTI, as well as others were entertained. This patient was evaluated and appeared to be in no significant distress. IV access was obtained and laboratory work was drawn. The patient was placed on the electrical sign wirer helper. CT scan abdomen and pelvis was performed without contrast to evaluate for stone. This study is largely negative. Urinalysis is negative. Laboratory work is otherwise unrevealing. The patient's symptoms are likely an acute on chronic exacerbation of pain. He did have a nephrostomy tube in this kidney. The patient was advised to follow-up with his urologist, Dr. Day who is familiar with his case. He will use Tylenol as needed for pain and return to the emergency department for worsening of symptoms or any medical concerns. Medication Reconcilliation Current Medication List: was personally reviewed by me Blood Pressure Screening Patient's blood pressure: Elevated blood pressure Blood pressure disposition: Elevated BP felt to be situational Impression Primary Impression: Acute right flank pain Scribe Attestation The scribe's documentation has been prepared under my direction and personally reviewed by me in its entirety. I confirm that the note above accurately reflects all work, treatment, procedures, and medical decision making performed by me. Departure Information Dispostion Home / Self-Care Referrals Librado Wood M.D. (PCP) Mell Day MD Patient Instructions My [facility] Additional Instructions Diagnosis: Right flank pain Tylenol 650 mg every 6 hours as needed for pain. Contact Dr. Day office for follow-up if symptoms persist this week. Return to the emergency department for worsening of symptoms or any medical concerns.
[2017-09-14 23:53] LABS: BASO % 0.8 %; BASO ABS # 0.05 K/uL (0-0.2); COMPLETE YES; EOS % 3.5 %; HEMATOCRIT 40.4 % (42-52); IG% 0.3 %; LYMPH % 33.6 %; LYMPH ABS # 2.14 K/uL (1.2-3.4); MEAN CELL VOLUME 92.7 fL (80-100); MEAN CORPUSCULAR HEMOGLOBIN 31.9 pg (25-34); MEAN CORPUSCULAR HGB CONC 34.4 g/dl (32-36); MEAN PLATELET VOLUME 10.5 fL (7.4-10.4); MONO % 11.8 %; PLATELET COUNT 177 K/uL (130-400); RED BLOOD COUNT 4.36 M/uL (4.7-6.1); WHITE BLOOD COUNT 6.36 K/uL (4.8-10.8)
[2017-09-15 00:11] LABS: BUN/CREATININE RATIO 19.1 (10-20); CALCIUM 8.9 mg/dl (8.5-10.1); CREATININE 1.2 mg/dl (0.60-1.40); POTASSIUM 4.1 mmol/L (3.5-5.1)
[2017-09-15 01:17] LABS: URINE APPEARANCE CLEAR (CLEAR); URINE BILIRUBIN NEG (NEG); URINE COLOR YELLOW; URINE NITRITE NEG (NEG); URINE PH 6.5 (4.5-7.5); URINE SPECIFIC GRAVITY 1.021 (1.000-1.030); UROBILINOGEN NEG (NEG); ZZUR CULT IF INDIC CLEAN CATCH NO
[2017-09-15 02:15] LABS: MANUAL MICROSCOPIC REQUIRED? NO; REVIEW REQ? NO
[2017-09-15 02:40] VITALS: BP 147/81; PULSE 78; O2SAT 96
--- NOTE | 2017-09-15 06:40 | DIAGNOSTIC IMAGING REPORT ---
CT SCAN OF THE ABDOMEN AND PELVIS WITHOUT CONTRAST CLINICAL HISTORY: Right flank pain, s/p nephrostomy tube removal, kidney stone COMPARISON STUDY: 06/24/2017 TECHNIQUE: CT scan of the abdomen and pelvis was performed from the lung bases to the proximal femurs. Images are reviewed in the axial, sagittal, and coronal planes. IV contrast was not administered for this examination. A dose lowering technique was utilized adhering to the principles of ALARA. CT DOSE: 274.84 mGy.cm FINDINGS: Lower chest: There are stable stable 5 mm and 4 mm solid left lower lobe pulmonary nodules. There is lower lobe bronchial wall thickening. Liver: The unenhanced liver is normal in size, contour, and attenuation. There is no intrahepatic biliary ductal dilatation. Gallbladder: Unremarkable. Spleen: Normal in size and attenuation. Pancreas: Unremarkable. Adrenal glands: Unremarkable. Kidneys: No renal, ureteral, or bladder calculi are visualized. There is no significant hydronephrosis. Bowel: There are no transition zones indicate bowel obstruction. There is no acute diverticulitis. There are no findings to indicate acute appendicitis. Peritoneum: There is no intraperitoneal free air or abdominal ascites. There is small fat-containing right inguinal hernia. Vasculature: The abdominal aorta is normal in course and caliber. Adenopathy: None. Pelvic viscera: The bladder, and pelvic viscera are unremarkable. Skeletal structures: No destructive osseous lesions are seen. IMPRESSION: 1. Study compromised secondary to patient motion 2. No renal, ureteral, or bladder calculi identified 3. No evidence of bowel obstruction. No evidence of free air 4. Stable 5 mm and 4 mm left lower lobe pulmonary nodules. Electronically signed by: Fabian Whitmore M.D. 09/15/2017 6:38 AM Dictated Date/Time: 09/15/2017 6:35 AM
== END 2017-09-15 02:40 | disposition home or self-care (01) ==
LOC: C.EDB 23:13
DX: R10.31 Right lower quadrant pain (principal); G89.29 Other chronic pain; Z98.890 Other specified postprocedural states; Z87.442 Personal history of urinary calculi; Z84.1 Family history of disorders of kidney and ureter; Z87.891 Personal history of nicotine dependence